=== PATIENT | female | born 2000 | race Caucasian/White ===

== ENCOUNTER 2024-01-17 13:19 | Emergency (ER) | payer OTHER ==
[~2024-01-17] VITALS: Ht 167.6 cm; Wt 128.8 kg
[2024-01-17 13:19] VITALS: BP 120/84; PULSE 108; RESP 18; TEMP 98; O2SAT 98
[2024-01-17 13:21] VITALS: BP 139/68; PULSE 81; RESP 17; TEMP 97.6
[2024-01-17 13:30] VITALS: O2SAT 98
== END 2024-01-17 16:09 | disposition home or self-care (01) ==
LOC: MED 13:19
DX: O9A.212 Injury, poisoning and certain other consequences of external causes complicating pregnancy, second trimester (principal); S80.11XA Contusion of right lower leg, initial encounter; S80.212A Abrasion, left knee, initial encounter; S20.311A Abrasion of right front wall of thorax, initial encounter; Z3A.12 12 weeks gestation of pregnancy; Z98.890 Other specified postprocedural states; Z90.49 Acquired absence of other specified parts of digestive tract; V89.2XXA Person injured in unspecified motor-vehicle accident, traffic, initial encounter; Y93.89 Activity, other specified; Y92.410 Unspecified street and highway as the place of occurrence of the external cause; Y99.8 Other external cause status
CPT/HCPCS: 73590; 76801; 81025; 99284; Q0092